=== PATIENT | female | born 1995 | race Caucasian/White ===

== ENCOUNTER 2019-04-18 18:05 | Emergency (ER) | payer OTHER ==
[~2019-04-18] VITALS: Ht 162.6 cm; Wt 53.1 kg
[~2019-04-18 18:05] MED LIST: ACETAMINOPHEN-1 EAC1 PO; IBUPROFEN 600600 M1 PO; NOHOMEMEDICATIONS
[2019-04-18 18:37] LABS: URINE BILIRUBIN NEGATIVE (Negative); URINE BLOOD 3+ (Negative); URINE CLARITY CLEAR; URINE COLOR YELLOW; URINE GLUCOSE-RANDOM NEGATIVE (Negative); URINE KETONES NEGATIVE (Negative); URINE LEUKOCYTES-REFLEX TRACE (Negative); URINE NITRITE-REFLEX NEGATIVE (Negative); URINE PROTEIN NEGATIVE (Negative); URINE SPECIFIC GRAVITY 1.015 (1.005-1.030); URINE UROBILINOGEN 0.2 E.U./dl (0.2-1.0)
[2019-04-18] MEDS ORDERED: BACTRIM DS TAB1 EACH PO (19:15)
[2019-04-18 19:16] LABS: CASTS None Seen /LPF (None Seen); MUCUS None Seen strn/LPF (None Seen); SQUAMOUS >10 Many /LPF (0-3)
[2019-04-18 19:17] LABS: CRYSTALS None Seen /LPF (None Seen); URINE WBC-REFLEX 0-5 Rare /HPF (0-5)
[2019-04-18 19:24] VITALS: BP 121/77
== END 2019-04-18 19:34 | disposition home or self-care (01) ==
LOC: M.ERS 18:05
PROVIDERS: Nurse Practitioner Psychiatric/Mental Health
DX: N39.0 Urinary tract infection, site not specified (principal)

== ENCOUNTER 2019-05-28 10:23 | Emergency (ER) | payer OTHER ==
[~2019-05-28] VITALS: Ht 162.6 cm; Wt 53.5 kg
[~2019-05-28 10:23] MED LIST changes: +BACTRIM DS TAB1 EACH PO
[2019-05-28 10:43] LABS: URINE BILIRUBIN NEGATIVE (Negative); URINE BLOOD 3+ (Negative); URINE CLARITY CLEAR; URINE COLOR YELLOW; URINE GLUCOSE-RANDOM NEGATIVE (Negative); URINE KETONES NEGATIVE (Negative); URINE LEUKOCYTES-REFLEX NEGATIVE (Negative); URINE NITRITE-REFLEX NEGATIVE (Negative); URINE PROTEIN NEGATIVE (Negative); URINE SPECIFIC GRAVITY 1.025 (1.005-1.030); URINE UROBILINOGEN 0.2 E.U./dl (0.2-1.0)
[2019-05-28] MEDS ORDERED: BIRTH CONTROL (10:43)
[2019-05-28 10:53] LABS: SQUAMOUS 0-3 Few /LPF (0-3); URINE RBC 3-10 Few /HPF (0-2); URINE WBC-REFLEX 0-5 Rare /HPF (0-5)
[2019-05-28 10:54] LABS: BACTERIA-REFLEX 1-9 Few /HPF (None Seen); CASTS None Seen /LPF (None Seen); CRYSTALS None Seen /LPF (None Seen); MUCUS 4-6 Moderate strn/LPF (None Seen)
[2019-05-28 11:40] LABS: ABSOLUTE BASOPHILS 0.1 thou/uL (0.0-0.2); ABSOLUTE EOSINOPHILS 0.1 thou/uL (0.0-0.7); ABSOLUTE LYMPHOCYTES 1.1 thou/uL (0.8-5.3); ABSOLUTE MONOCYTES 0.5 thou/uL (0.0-1.2); ABSOLUTE NEUTROPHILS 4.4 thou/uL (1.6-8.1); BASOPHILS 1.3 %; EOSINOPHILS 2.1 %; HEMATOCRIT 35.9 % (37.0-47.0); HEMOGLOBIN 11.1 gm/dL (12.0-15.0); LYMPHOCYTES 18.1 %; MCH 21.5 pg (26.0-34.0); MCHC 30.9 g/dL (28.0-37.0); MCV 69.6 fL (80.0-100.0); MPV 7.9 fl. (7.2-11.1); NUCLEATED RBCS 0 /100WBC; PLATELET COUNT* 287 thou/uL (150-400); POLYS 70.5 %; RBC 5.16 mil/uL (4.20-5.00); RDW-CV 20.9 % (10.5-14.5); WBC 6.3 thou/uL (4.0-11.0)
[2019-05-28 11:48] LABS: CALCIUM 9.2 mg/dL (8.5-10.1)
[2019-05-28 11:52] LABS: ALBUMIN 3.7 g/dL (3.4-5.0); TOTAL BILIRUBIN 0.2 mg/dL (<0.1-1.0); TOTAL PROTEIN 7.7 g/dL (6.4-8.2)
[2019-05-28 12:38] LABS: HYPOCHROMASIA 1+; MICROCYTES 2+; PLATELET ESTIMATE ADEQUATE
[2019-05-28 12:39] LABS: ANISOCYTOSIS 2+; OVALOCYTES 1+; POIKILOCYTOSIS 1+
[2019-05-28] MEDS ORDERED: NABUMETONE 750750 M1 PO (13:03)
[2019-05-28 13:29] VITALS: BP 118/79
== END 2019-05-28 13:29 | disposition home or self-care (01) ==
LOC: M.ERS 10:23
PROVIDERS: Nurse Practitioner Family
DX: N93.8 Other specified abnormal uterine and vaginal bleeding (principal)

== ENCOUNTER 2021-04-05 12:40 | Emergency (ER) | payer OTHER ==
[~2021-04-05] VITALS: Ht 162.6 cm; Wt 54.9 kg
[~2021-04-05 12:40] MED LIST changes: +BIRTH CONTROL; +NABUMETONE 750750 M1 PO
[2021-04-05 15:17] VITALS: BP 123/84
== END 2021-04-05 14:40 | disposition left against medical advice (07) ==
LOC: M.ERS 12:40
DX: Z53.21 Procedure and treatment not carried out due to patient leaving prior to being seen by health care provider (principal)